=== PATIENT | male | born 1985 | race Hispanic/Latino ===

== ENCOUNTER 2019-03-05 16:03 | Emergency (ER) | payer OTHER ==
[2019-03-05] MEDS ORDERED: TETRACAINE HCL 0.5% 4ML OPTH ONE (16:59)
[2019-03-05] MEDS ORDERED: FLUORESCEIN SODIUM 1 MG/WRAP ONE (16:59)
[2019-03-05] MEDS ORDERED: TETANUS & DIPHTHERIA TOX,ADULT 0.5 ML VIAL ONE (17:00)
--- NOTE | 2019-03-05 17:12 | ER ---
Nurse's Notes [facility] Name: Chin Lee Jr Age: 33 yrs Sex: Male : 1985 Arrival Date: 03/05/2019 Time: 16:06 Bed 9 Private MD: Marylin Morrell H Diagnosis: Conjunctivitis of the left eye Presentation: 03/05 17:05 Presenting complaint: Patient states: feels like there's something in left eye X 2 iw days. Transition of care: patient was not received from another setting of care. Onset of symptoms was March 03, 2019. Risk Assessment: Do you want to hurt yourself or someone else? Patient reports no desire to harm self or others. Initial Sepsis Screen: Does the patient meet any 2 criteria? No. Patient's initial sepsis screen is negative. Does the patient have a suspected source of infection? No. Patient's initial sepsis screen is negative. Care prior to arrival: None. 17:05 Method Of Arrival: Ambulatory iw 17:11 Acuity: ARVIND 4 iw Triage Assessment: 17:25 General: Appears in no apparent distress. Behavior is calm. iw Historical: - Allergies: 17:27 No Known Allergies; iw - Home Meds: 17:27 None [Active]; iw - PMHx: 17:27 None; iw - PSHx: 17:27 None; iw - Immunization history:: Last tetanus immunization: unknown. - Social history:: Smoking status: unknown. - Ebola Screening: : Patient negative for fever greater than or equal to 101.5 degrees Fahrenheit, and additional compatible Ebola Virus Disease symptoms Patient denies exposure to infectious person Patient denies travel to an Ebola-affected area in the 21 days before illness onset No symptoms or risks identified at this time. Screenin:35 Abuse screen: Denies threats or abuse. Denies injuries from another. Nutritional iw screening: No deficits noted. Tuberculosis screening: No symptoms or risk factors identified. Fall Risk None identified. Assessment: 17:10 General: Appears in no apparent distress. Behavior is calm, cooperative. Pain: iw Complains of pain in left eye. Neuro: Level of Consciousness is awake, alert, obeys commands, Oriented to person, place, time, situation, Moves all extremities. Full function. Cardiovascular: Patient's skin is warm and dry. Respiratory: Respiratory effort is even, unlabored, Respiratory pattern is regular, symmetrical, EENT: Sclera/Cornea are reddened in outer aspect of conjuctiva of left eye, iris of left eye and inner aspect of conjunctiva of left eye. Derm: Skin is intact, is healthy with good turgor. Musculoskeletal: Range of motion: intact in all extremities. Vital Signs: 17:27 BP 118 / 75; Pulse 59; Resp 16; Temp 98.2; Pulse Ox 100% on R/A; iw Visual Acuity: 17:28 Left Eye Visual acuity 20/13, ; Right Eye Visual acuity 20/13, ; Both Eyes Visual iw acuity 20/13; Without Lenses; ED Course: 16:06 Patient arrived in ED. mr 16:06 Marylin Morrell DO is Private Physician. mr 16:41 Ronnell Gong FNP-C is [facility]. la1 16:41 Ba Urias MD is Attending Physician. la1 16:59 Ofelia Coffman, RN is Primary Nurse. iw 17:05 Patient has correct armband on for positive identification. iw 17:11 Triage completed. iw 17:25 No provider procedures requiring assistance completed. Patient did not have IV access iw during this emergency room visit. 17:28 Arm band placed on. 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 Exp: iw 02/27/2021. Lot #: [id number]. } Route: IM; Site: right deltoid; Outcome: 17:12 Discharge ordered by . la1 17:34 Discharged to home ambulatory. iw 17:34 Condition: good 17:34 Discharge instructions given to patient, Instructed on discharge instructions, follow up and referral plans. medication usage, Demonstrated understanding of instructions, follow-up care, medications, Prescriptions given X 1. 17:35 Patient left the ED. iw Signatures: Jennifer Alvarado mr Ofelia Coffman, RN RN iw Ronnell Gong FNP-C [facility]
--- NOTE | 2019-03-05 17:12 | EDPHYS ---
Physician Documentation [facility] Name: Chin Lee Jr Age: 33 yrs Sex: Male : 1985 Arrival Date: 03/05/2019 Time: 16:06 Bed 9 Private MD: Marylin Morrell H ED Physician Ba Urias HPI: 03/05 17:06 This 33 yrs old Male presents to ER via Unassigned with complaints of Redness la1 of Eye. 17:06 The patient is experiencing redness, tearing, to the left eye. Onset: The la1 symptoms/episode began/occurred gradually. Duration: the symptoms are continuous. Aggravated by nothing. Alleviated by nothing. Associated signs and symptoms: Pertinent negatives: chills, ear ache, fever, headache, runny nose. Patient does not utilize any form of vision correction. Severity of symptoms: At their worst the symptoms were mild in the emergency department the symptoms are unchanged. The patient has experienced a previous episode. pt reports that he a gritty sensation in his left eye. Has been red for a few days. Does not have a recent exposure to any welding, sand blasting, construction or other occupation risks for foreign body. Historical: - Allergies: 17:27 No Known Allergies; iw - Home Meds: 17:27 None [Active]; iw - PMHx: 17:27 None; iw - PSHx: 17:27 None; iw - Immunization history:: Last tetanus immunization: unknown. - Social history:: Smoking status: unknown. - Ebola Screening: : Patient negative for fever greater than or equal to 101.5 degrees Fahrenheit, and additional compatible Ebola Virus Disease symptoms Patient denies exposure to infectious person Patient denies travel to an Ebola-affected area in the 21 days before illness onset No symptoms or risks identified at this time. ROS: 17:08 Constitutional: Negative for fever, chills, and weight loss, ENT: Negative for injury, la1 pain, and discharge, Neck: Negative for injury, pain, and swelling, Cardiovascular: Negative for chest pain, palpitations, and edema, Respiratory: Negative for shortness of breath, cough, wheezing, and pleuritic chest pain, Abdomen/GI: Negative for abdominal pain, nausea, vomiting, diarrhea, and constipation, Back: Negative for injury and pain, : Negative for injury, bleeding, discharge, and swelling, MS/Extremity: Negative for injury and deformity, Neuro: Negative for headache, weakness, numbness, tingling, and seizure. 17:08 Eyes: Positive for foreign body sensation, pain, redness, tearing, Negative for vision loss, visual disturbance. Exam: 17:09 Visual Acuity: Visual acuity is within normal limits. la1 17:09 Constitutional: This is a well developed, well nourished patient who is awake, alert, and in no acute distress. Head/Face: Normocephalic, atraumatic. 17:09 Eyes: Periorbital structures: appear normal, no acute changes, no abrasion, no cellulitis, no contusion, no ecchymosis, no erythema, no laceration, no swelling, Pupils: equal, round, and reactive to light and accomodation, Extraocular movements: intact throughout, Conjunctiva: chemosis, is not appreciated, excoriated, is not appreciated, injected, in the left eye, tearing noted, in left eye, Corneas: Sclera: no appreciated abnormality, Lids and lashes: appear normal, on the left. Vital Signs: 17:27 BP 118 / 75; Pulse 59; Resp 16; Temp 98.2; Pulse Ox 100% on R/A; iw Visual Acuity: 17:28 Left Eye Visual acuity 20/13, ; Right Eye Visual acuity 20/13, ; Both Eyes Visual iw acuity 20/13; Without Lenses; Procedures: 17:10 Eye Exam: no ulcer, abrasion, or foreign body noted, Tetracaine applied prior to exam. la1 Pt tolerated well. MDM: 16:41 Patient medically screened. la1 17:10 Data reviewed: vital signs, nurses notes, and as a result, I will discharge patient. la1 Data interpreted: Pulse oximetry: on room air is 99 %. Interpretation: normal. Counseling: I had a detailed discussion with the patient and/or guardian regarding: the historical points, exam findings, and any diagnostic results supporting the discharge/admit diagnosis, the need for outpatient follow up, a family practitioner, to return to the emergency department if symptoms worsen or persist or if there are any questions or concerns that arise at home. Medication response: tetracaine relieved pain. 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 Exp: 02/27/2021. Lot #: [id number]. } Route: IM; Site: right deltoid; Disposition: 03/06 08:10 Co-signature as Attending Physician, Ba Urias MD. rn Disposition: 03/05/19 17:12 Discharged to Home. Impression: Conjunctivitis of the left eye. - Condition is Stable. - Discharge Instructions: Chemical Conjunctivitis, Adult, Bacterial Conjunctivitis, Viral Conjunctivitis. - Prescriptions for polymyxin B sulf- trimethoprim 10,000 unit- 1 mg/mL Ophthalmic drops - instill 1 drop by OPHTHALMIC route every 4 hours for 7 days; 1 bottle. - Medication Reconciliation Form, Thank You Letter, Antibiotic Education form. - Follow up: Private Physician; When: 2 - 3 days; Reason: Recheck today's complaints, Re-evaluation by your physician. Follow up: Emergency Department; When: As needed; Reason: Fever > 102 F, Worsening of condition. - Problem is new. - Symptoms are unchanged. - Notes: Return immediately to ER with worsening of symptoms, changes in vision, fever. Signatures: Ofelia Coffman RN RN iw Nieto, MD MD toy Cosme Lee, MAILING MANAGER-C MAILING MANAGER-Cla1 Corrections: (The following items were deleted from the chart) 03/05 17:35 17:12 03/05/2019 17:12 Discharged to Home. Impression: Conjunctivitis of the left eye. Condition is Stable. Forms are Medication Reconciliation Form, Thank You Letter, Antibiotic Education, Prescription Opioid Use. Follow up: Private Physician; When: 2 - 3 days; Reason: Recheck today's complaints, Re-evaluation by your physician. Follow up: Emergency Department; When: As needed; Reason: Fever > 102 F, Worsening of condition. Problem is new. Symptoms are unchanged. la1
[2019-03-05 23:58] VITALS: BP 118/75; TEMP 98.2; O2SAT 100
== END 2019-03-05 17:35 | disposition home or self-care (01) ==
LOC: ER 16:03
DX: H10.9 Unspecified conjunctivitis (principal); Z23 Encounter for immunization
CPT/HCPCS: 90471; 90714; 99283

== ENCOUNTER 2020-05-30 22:34 | Emergency (ER) | payer OTHER ==
[2020-05-30] MEDS ORDERED: EPINEPHrine 1 MG/10 ML SYR IV ONE (22:35)
[2020-05-30] MEDS ORDERED: NALOXONE HCL 2 MG/2 ML VIAL ONE (22:52)
[2020-05-30] MEDS ORDERED: NALOXONE 0.4 MG/ML VIAL ONE (22:53)
[2020-05-30] MEDS ORDERED: FLUMAZENIL 0.1 MG/ML (5 mL VIAL) IV ONE (22:55)
--- NOTE | 2020-05-30 23:26 | ER ---
Nurse's Notes [facility] Name: Chin Lee Jr Age: 34 yrs Sex: Male : 1985 Arrival Date: 05/30/2020 Time: 22:35 Bed 3 Private MD: Diagnosis: Cardiac arrest-Asystole Presentation: 05/30 22:31 Chief complaint: EMS states: called out for report of pt unresponsive CPR had been bb started by someone on scene. Care prior to arrival: CPR performed by bystander Thumper in place on pt arrival to ED Medication(s) given: epinephrine x 4 given by EMS prior to arrival IO to left lower extremity pt intubated on scene with ETT 8.0, 23 cm at the lips. Compressions began prior to arrival. 22:31 Method Of Arrival: EMS: [facility] bb 22:31 Acuity: ARVIND 1 bb 22:52 Coronavirus screen: pt unresponsive. Ebola Screen: Unable to complete the Ebola bb screening because: Patient is unresponsive. Initial Sepsis Screen: Does the patient meet any 2 criteria? No. Patient's initial sepsis screen is negative. Does the patient have a suspected source of infection? No. Patient's initial sepsis screen is negative. Risk Assessment: Do you want to hurt yourself or someone else? Unable to obtain. Onset of symptoms is unknown. 23:00 Note pt had Carisprodol 350 mg, [place] 7.5 mg, and clonazepam 2 mg with him on arrival. bb Historical: - Allergies: 23:00 Unable to obtain; bb - Home Meds: 23:00 Unable to obtain [Active]; bb - PMHx: 23:00 Unable to obtain; bb - Immunization history:: Adult Immunizations unknown. - Social history:: Smoking status: unknown. Screenin:31 Abuse screen: unknown. Nutritional screening: No deficits noted. Tuberculosis bb screening: unknown. Assessment: 22:31 CPR assessment: unresponsive, intubated. Cardiac rhythm is asystole. bb 22:31 Reassessment: follow ACLS protocol. rr5 23:33 Reassessment: life [employer] not a candidate for donation. rr5 23:33 Reassessment: [place] [employer] arrived, special education bus driver is on the way. rr5 23:50 Reassessment: clinical quality manager arrived. rr5 05/31 01:12 Reassessment: special education bus driver isabela sign the form. rr5 01:30 Reassessment: valuable signed by brother in law. rr5 Vital Signs: 05/30 22:31 bb 22:42 Pulse 0; Resp 0; rr5 23:33 Weight 90 kg; Height 5 ft. 7 in. (170.18 cm); rr5 23:33 Body Mass Index 31.08 (90.00 kg, 170.18 cm) rr5 22:31 no vitals bb ED Course: 22:35 Patient arrived in ED. mw2 22:39 Inserted saline lock: 20 gauge in left antecubital area, using aseptic technique. bb ,using aseptic technique. by [facility] Blood collected. 22:44 Paulo Maza MD is Attending Physician. [facility] 22:46 Police notified at 22:46 spoke to [place] [employer] dispatch to send an officer of recently mw2 patient. 22:51 Triage completed. bb 23:10 Yassine Betancourt, TONI is Primary Nurse. rr5 23:25 Paulo Maza MD is Pronouncing Provider. [facility] 05/31 01:46 Police notified at 01:46 called [place] [employer] sourav Gupta to inform them that the patient mw2 belongings were left here. She will give us a call back. 01:54 Police [place] [employer] called and informed us that the Patient's Sister will be here in the mw2 morning to pickler helper the patient's belongings. 02:00 Dell from our [facility] took patient's belongings to the safe. mw2 Administered Medications: 05/30 22:34 Drug: EPINEPHrine 0.1mg/mL 1:10,000 1 mg {Note: IO LLE.} Route: IVP; Site: Other; bb 22:35 Drug: Sodium Bicarbonate 1 amp {Note: IO LLE.} Route: IVP; Site: Other; bb 22:36 Drug: NARcan (naloxone) 2 mg {Note: IO LLE.} Route: IVP; Site: Other; bb 22:38 Drug: EPINEPHrine 0.1mg/mL 1:10,000 1 mg {Note: IO LLE.} Route: IVP; Site: Other; bb 22:39 Drug: Romazicon (flumazenil) 0.5 mg Route: IVP; Site: left antecubital; bb 22:41 Drug: EPINEPHrine 0.1mg/mL 1:10,000 1 mg Route: IVP; Site: left antecubital; bb Point of Care Testing: Blood Glucose: 22:40 Blood Glucose: 444 mg/dL; bb Ranges: Outcome: 22:42 Outcome Patient bb 23:11 Patient : Time of 22:42 Pronounced by Paulo Maza MD rr5 23:11 Condition: 05/31 01:48 Patient left the ED. rr5 Signatures: Kori Peralta RN RN Nirmala Silva 2 Yassine Betancourt RN RN rr5 Paulo Maza MD MD mh7
--- NOTE | 2020-05-30 23:26 | EDPHYS ---
Physician Documentation [facility] Name: Chin Lee Jr Age: 34 yrs Sex: Male : 1985 Arrival Date: 05/30/2020 Time: 22:35 Bed 3 Private MD: ED Physician Paulo Maza HPI: 05/30 22:46 This 34 yrs old Male presents to ER via Unassigned with complaints of CPR in mh7 progress. 22:46 Preceding the arrest, the patient was found down by family. 7 22:57 The arrest occurred at home. Pre-hospital course: The arrest was not witnessed by [facility] others. Bystanders at the scene did not perform CPR. EMS care prior to arrival: initiation of ACLS, peripheral IV, Left tibial IO line. intubation was successfully performed, orally, using a 8.0 ET tube. oxygen, by BVM to assist ventilations. 100% by ET tube. backboard, EMS call time was 21:53. EMS on scene time was 21:55. Time elapsed prior to ACLS is unknown. ACLS has been in progress for 40 minutes. ACLS details: Initial rhythm was asystole. The presenting rhythm is asystole. Airway: oral intubation, Medications given by EMS prior to arrival - Epinephrine IV x 4 doses, Defibrillation was not performed, an external pacer was not used, Response to therapy: continued arrest. Unable to obtain HPI due to patient is on ventilator, unresponsive. Per EMS family called after finding patient down for unknown time. Last seen normal \T\ 2030. Call received \T\ 2153. Asystole at scene. ACLS initiated, intubated, Chest compressions, left tibial IO line started. Patient received Epinephrine total of 4 mg without change in status. On arrival to ED patient in asystole without response to any stimuli, no spontaneous respirations, no pulse or heart beat, pupils fixed and dilated.. Historical: - Allergies: 23:00 Unable to obtain; bb - Home Meds: 23:00 Unable to obtain [Active]; bb - PMHx: 23:00 Unable to obtain; bb - Immunization history:: Adult Immunizations unknown. - Social history:: Smoking status: unknown. ROS: 22:57 Unable to obtain ROS due to patient is on ventilator, unresponsive. [facility] Exam: 22:57 Head/Face: Normocephalic, atraumatic. mh7 22:57 Neck: Trachea midline, no thyromegaly or masses palpated, and no cervical lymphadenopathy. Supple, full range of motion without nuchal rigidity, or vertebral point tenderness. No Meningismus. 22:57 Constitutional: The patient appears comatose, unresponsive 22:57 Eyes: Periorbital structures: appear normal, Pupils: are fixed and dilated, Sclera: no appreciated abnormality. 22:57 ENT: ETT in place. 23:12 Chest/axilla: Normal chest wall appearance and motion. Nontender with no deformity. mh7 No lesions are appreciated. 23:12 Abdomen/GI: Soft, non-tender, with normal bowel sounds. No distension or tympany. No guarding or rebound. No evidence of tenderness throughout. Back: No spinal tenderness. No costovertebral tenderness. Full range of motion. Skin: Warm, dry with normal turgor. Normal color with no rashes, no lesions, and no evidence of cellulitis. 23:12 Cardiovascular: Rate: actual rate is 0 bpm, Rhythm: asystole, Pulses: not palpable, Heart sounds: Absent, Edema: is not appreciated, JVD: is not appreciated. 23:12 Respiratory: No spontaneous respirations, Respirations: none, Breath sounds: are clear throughout, with BVM, Respiratory rate: 0 23:12 Musculoskeletal/extremity: Extremities: noted in the left tibia: IO line in place, ROM: no spontaneous movement, Pulses: are absent in the diffusely, no response to any stimuli 23:12 Neuro: Orientation: unable to test, unresponsive, Mentation: unable to test, unresponsive, Memory: unable to test, unresponsive, Cranial nerves: unable to test, unresponsive, Cerebellar function: unable to test, unresponsive, Motor: no spontaneous movement, Sensation: no response to any stimuli, Gait: not tested. seizure activity, is not displayed by the patient, Abnormal movements: there are no abnormal movements. Vital Signs: 22:31 bb 22:42 Pulse 0; Resp 0; rr5 23:33 Weight 90 kg; Height 5 ft. 7 in. (170.18 cm); rr5 23:33 Body Mass Index 31.08 (90.00 kg, 170.18 cm) rr5 22:31 no vitals bb MDM: 23:12 Differential diagnosis: arrythmia, cardiac arrest, respiratory arrest, traumatic 7 injury, overdose, asphyxiation. Data reviewed: vital signs, nurses notes, EMS record. ED course: In ED CPR was continued with Epinephrine total 3 mg, Sodium Bicarbonate 1 AMP, Narcan 2 mg, Romazicon 0.5 mg. Patient continued to be in asystole with no response to any stimuli, no spontaneous pulse or heart beat, no spontaneous respirations, and fixed and dilated pupils. CPR was discontinued and patient was pronounced at 22:42.. 23:[address] [facility] 05/30 22:53 Order name: Glucose, Ancillary Testing EDMS Administered Medications: 22:34 Drug: EPINEPHrine 0.1mg/mL 1:10,000 1 mg {Note: IO LLE.} Route: IVP; Site: Other; bb 22:35 Drug: Sodium Bicarbonate 1 amp {Note: IO LLE.} Route: IVP; Site: Other; bb 22:36 Drug: NARcan (naloxone) 2 mg {Note: IO LLE.} Route: IVP; Site: Other; bb 22:38 Drug: EPINEPHrine 0.1mg/mL 1:10,000 1 mg {Note: IO LLE.} Route: IVP; Site: Other; bb 22:39 Drug: Romazicon (flumazenil) 0.5 mg Route: IVP; Site: left antecubital; bb 22:41 Drug: EPINEPHrine 0.1mg/mL 1:10,000 1 mg Route: IVP; Site: left antecubital; bb Point of Care Testing: Blood Glucose: 22:40 Blood Glucose: 444 mg/dL; bb Ranges: Critical Glucose Levels:Adult <50 mg/dl or >400 mg/dl <40 mg/dl or >180 mg/dl Disposition: 23:12 . 7 Disposition: Patient pronounced on 05/30/20 22:42 by Paulo Maza. Impression: Cardiac arrest - Asystole. - Released to Pattern Changer And Repairer. Signatures: Kori Peralta RN RN bb Yassine Betancourt RN RN rr5 Paulo Maza MD MD 7 Corrections: (The following items were deleted from the chart) 05/31 01:48 05/30 23:26 05/30/2020 23:26 Patient pronounced on 05/30/2020 at 22:42 by jaun Maza. Impression: Cardiac arrest - Asystole. Released to Pattern Changer And Repairer. mh7
== END 2020-05-31 01:48 ==
LOC: ER 22:34
PROC: 5A12012 Performance of Cardiac Output, Single, Manual (ICD-10-PCS; principal; 2020-05-31)
DX: I46.9 Cardiac arrest, cause unspecified (principal)
CPT/HCPCS: 82947; 92950; J2310; J0171; 99285